=== PATIENT | female | born 1955 | race Caucasian/White ===

== ENCOUNTER → 2017-02-10 | Outpatient (CLI) | payer BC ==
[2017-02-10 17:31] LABS: BASO % 0.5 %; BASO ABS # 0.05 K/uL (0-0.2); COMPLETE YES; HEMATOCRIT 37.9 % (37-47); IG% 0.2 %; LYMPH % 30.5 %; LYMPH ABS # 2.87 K/uL (1.2-3.4); MEAN CELL VOLUME 90.7 fL (80-100); MEAN CORPUSCULAR HEMOGLOBIN 30.4 pg (25-34); MEAN CORPUSCULAR HGB CONC 33.5 g/dl (32-36); MEAN PLATELET VOLUME 11.2 fL (7.4-10.4); MONO % 8.3 %; NEUT % 58.5 %; PLATELET COUNT 242 K/uL (130-400); RED BLOOD COUNT 4.18 M/uL (4.2-5.4); WHITE BLOOD COUNT 9.42 K/uL (4.8-10.8)
[2017-02-10 18:28] LABS: BLOOD UREA NITROGEN 16 mg/dl (7-18); BUN/CREATININE RATIO 16.8 (10-20); CALCIUM 9.1 mg/dl (8.5-10.1); CARBON DIOXIDE 27 mmol/L (21-32); CHLORIDE 103 mmol/L (98-107); CREATININE 0.98 mg/dl (0.60-1.20); GLUCOSE 103 mg/dl (70-99); HDL CHOLESTEROL 49 mg/dl; SODIUM 138 mmol/L (136-145)
[2017-02-10 18:41] LABS: ALB/GLOB RATIO 1.3 (0.9-2); ALKALINE PHOSPHATASE 59 U/L (45-117); ALT/SGPT 28 U/L (12-78); AST/SGOT 23 U/L (15-37); CHOLESTEROL 184 mg/dl (0-200); CHOLESTEROL/HDL RATIO 3.8; LDL CHOLESTEROL CALCULATED 103 mg/dl; TRIGLYCERIDES 159 mg/dl (0-150); VERY LOW DENSITY LIPOPROT CALC 32 mg/dl
== END | disposition home or self-care (01) ==
LOC: C.LABPVFM 14:53
PROVIDERS: ATTEND Neuromusculoskeletal Medicine & OMM
DX: Z11.59 Encounter for screening for other viral diseases (principal); R06.09 Other forms of dyspnea; Z00.00 Encounter for general adult medical examination without abnormal findings

== ENCOUNTER → 2017-02-15 | Outpatient (CLI) | payer BC ==
[2017-02-15 18:01] LABS: C-REACTIVE PROTEIN 0.37 mg/dl (0-0.29); RHEUMATOID FACTOR < 10.0 U/mL (0-15)
[2017-02-15 18:31] LABS: LYME DISEASE AB IGM NEG (NEG)
[2017-02-15 18:35] LABS: LYME DISEASE AB IGG NEG (NEG)
== END | disposition home or self-care (01) ==
LOC: C.LABPVFM 16:08
PROVIDERS: ATTEND Neuromusculoskeletal Medicine & OMM
DX: R05 Cough (principal)

== ENCOUNTER → 2017-02-25 | Outpatient (CLI) | payer BC ==
--- NOTE | 2017-02-25 15:32 | DIAGNOSTIC IMAGING REPORT ---
TWO VIEW CHEST CLINICAL HISTORY: Fatigue. Dyspnea on exertion. FINDINGS: PA and lateral chest radiographs are obtained. No prior studies are available for comparison at the time of dictation. The cardiomediastinal silhouette is unremarkable. The lungs and pleural spaces are clear. There is no pneumothorax. The bony thorax appears intact. IMPRESSION: No active disease in the chest. Electronically signed by: Wiley Guzman M.D. 02/25/2017 3:31 PM Dictated Date/Time: 02/25/2017 3:30 PM
== END | disposition home or self-care (01) ==
LOC: C.RADPV 15:17
PROVIDERS: ATTEND Neuromusculoskeletal Medicine & OMM
DX: R06.09 Other forms of dyspnea (principal); R53.83 Other fatigue

== ENCOUNTER → 2017-06-24 | Outpatient (CLI) | payer BC | END | disposition home or self-care (01) | LOC: C.LABPVFM 10:05 | PROVIDERS: ATTEND Family Medicine | DX: J02.9 Acute pharyngitis, unspecified (principal) ==

== ENCOUNTER → 2017-08-25 | Outpatient (CLI) | payer BC ==
--- NOTE | 2017-08-25 15:36 | DIAGNOSTIC IMAGING REPORT ---
BILATERAL KNEES 4 VIEWS EACH HISTORY: BILATERAL KNEE PAIN COMPARISON: None. FINDINGS: There is no fracture or dislocation. Soft tissues are unremarkable. No knee effusions. Cartilage spaces are maintained for age. Tiny osteophytes within the lateral compartment of right knee, medial compartment of the left knee and bilateral patellofemoral compartments. IMPRESSION: No fractures. Minimal degenerative changes within the bilateral knees. Electronically signed by: Supa Rangel M.D. 08/25/2017 3:35 PM Dictated Date/Time: 08/25/2017 3:34 PM
== END | disposition home or self-care (01) ==
LOC: C.RDSM 14:56
PROVIDERS: ATTEND Family Medicine
DX: M25.561 Pain in right knee (principal); M25.562 Pain in left knee; M89.8X6 Other specified disorders of bone, lower leg

== ENCOUNTER → 2017-11-23 | Outpatient (CLI) | payer BC ==
--- NOTE | 2017-11-23 17:19 | DIAGNOSTIC IMAGING REPORT ---
L LOWER EXT JOINT WITHOUT CLINICAL HISTORY: B/L KNEE PAIN pain TECHNIQUE: Multi axial acquisition MRI brain COMPARISON STUDY: None FINDINGS: Signal characteristics of the osseous structures are unremarkable. There is no significant bone marrow replacing process. Findings of mild surrounding soft tissue edematous change about the knee. There are findings of mild chondromalacia patella with degenerative thinning of the patellar articulating surface. Medial and lateral patellar retinaculum are intact. The medial and lateral joint compartments demonstrate the anterior and posterior cruciate ligaments to be intact. There are several small degenerative subchondral cysts. The menisci show mild grade 1/grade 2 degenerative intrameniscal signal although there is no evidence for an acute meniscal tear. The articular services the medial lateral joint compartments show mild thinning. A major defect of the articular services is not seen. IMPRESSION: 1. Mild chondromalacia patella. 2. Minimal/mild degenerative thinning of the articular services of the medial and lateral joint compartments. 3. Minimal surrounding soft tissue edematous change. The above report was generated using voice recognition software. It may contain grammatical, syntax or spelling errors. Electronically signed by: Ayaan Kelley M.D. 11/23/2017 5:18 PM Dictated Date/Time: 11/23/2017 5:14 PM
--- NOTE | 2017-11-23 17:59 | DIAGNOSTIC IMAGING REPORT ---
R LOWER EXT JOINT WITHOUT CLINICAL HISTORY: B/L KNEE PAIN pain TECHNIQUE: Multi axial MRI acquisition COMPARISON STUDY: None FINDINGS: Signal characteristics the osseous structures are unremarkable. There is no significant bone marrow replacing process. Anterior and posterior cruciate ligaments are intact. The collateral ligament structures are unremarkable. Evaluation of menisci shows presence of a mild degenerative internal matrix change. No evidence for a meniscal tear is appreciated. There are findings of mild thinning of the patellar articulating surface is consistent with mild chondromalacia patella. Medial and lateral patellar retinaculum are intact. IMPRESSION: 1. Mild chondromalacia patella. 2. Minimal degenerative matrix change of the medial as well as lateral meniscus. 3. Otherwise negative MRI of the knee. The above report was generated using voice recognition software. It may contain grammatical, syntax or spelling errors. Electronically signed by: Ayaan Kelley M.D. 11/23/2017 5:58 PM Dictated Date/Time: 11/23/2017 5:54 PM
== END | disposition home or self-care (01) ==
LOC: C.MRI 15:23
PROVIDERS: ATTEND Family Medicine
DX: M25.561 Pain in right knee (principal); M25.562 Pain in left knee

== ENCOUNTER → 2017-12-15 | Outpatient (CLI) | payer BC | END | disposition home or self-care (01) | LOC: C.PAPS 11:06 | PROVIDERS: ATTEND Obstetrics & Gynecology | DX: Z01.419 Encounter for gynecological examination (general) (routine) without abnormal findings (principal) ==

== ENCOUNTER → 2018-05-27 | Outpatient (CLI) | payer BC | END | disposition home or self-care (01) | LOC: C.LAB1850 11:46 | PROVIDERS: ATTEND Obstetrics & Gynecology | DX: R10.2 Pelvic and perineal pain (principal) ==